=== PATIENT | male | born 2000 | race Caucasian/White ===

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

== ENCOUNTER 2022-05-07 15:53 | Emergency (ER) | payer OTHER, SELFPAY ==
--- NOTE | ~2022-05-07 | XR_ITS ---
EXAM: XR foot LT min 3V DATE: 05/07/2022 16:33 HISTORY: left 1st toe pain s/p cart ran over foot . COMPARISON: None available. FINDINGS: Normal mineralization. No fracture or dislocation. No lytic or blastic lesion. Joint space s are maintained. No erosion or periosteal change. Soft tissues within normal limits. IMPRESSION: No acute osseous finding in the left foot. Reviewed, dictated and finalized at location K.
[2022-05-07 16:09] VITALS: BP 114/58; PULSE 81; RESP 16; TEMP 36.7; O2SAT 99
--- NOTE | 2022-05-07 16:22 | ED.LOWEXIN ---
HPI - Extremity Injury (Lower) General Chief Complaint: Extremity Injury, Lower Stated Complaint: injury Time Seen by Provider: 05/07/22 16:22 Source: patient Mode of arrival: ambulatory Limitations: no limitations History of Present Illness HPI Narrative: 22-year-old male presenting for complaint of left great toe pain after injury today. States the left foot was rolled over by a rolling cart with heavy boxes on top. Denies foot pain, numbness or tingling. It is worse with walking. Has not taken anything for pain. Related Data Home Medications Medication Instructions Recorded Confirmed No Home Medications 05/07/22 05/07/22 Allergies Allergy/AdvReac Type Severity Reaction Status Date / Time No Known Allergies Allergy Mild Verified 05/07/22 16:05 Review of Systems Review of Systems: CONSTITUTIONAL: Denies body aches, fever, chills CARDIOVASCULAR: Denies chest pain, palpitations, or edema. RESPIRATORY: Denies cough or dyspnea. SKIN: Denies rash, itching, or wounds. MUSCULOSKELETAL: Reports left great toe pain NEUROLOGIC: Denies headache, numbness, tingling, or weakness. PSYCH: Denies depression or anxiety. All systems reviewed & are unremarkable except as noted in HPI and below PMFSH Comments At time of signature, I have reviewed and agree with nursing past medical, surgical, social and family history unless otherwise noted. Please see nursing chart for further information. There is no relevant family history pertinent to the presenting complaint Exam Narrative: GENERAL: Well-appearing CHEST: Speaks in full sentences. No respiratory distress. HEART: Regular rate and rhythm. Normal and equal peripheral pulses. EXTREMITIES: Left foot has normal strength and sensation, normal range of motion. Left great toe without edema or ecchymosis, mild tenderness over the nail. Approximately 3 mm superficial laceration to the lateral aspect of the great toenail. No obvious deformity; pulse palpable and equal bilaterally, skin warm, dry, pink. Capillary refill less than 3 seconds. SKIN: Warm, dry, no rash. NEURO: Alert and oriented x3. PSYCH: Normal mood and affect Course Course Emergency Course: Patient is aware of diagnosis, understands and agrees to treatment plan. Anticipatory guidance given. Patient agrees to follow-up as directed and is aware of reasons to seek care at the emergency department. Portions of this record may have been created with voice recognition software Level of Care: Express Care Visit Vital Signs Vital signs: Vital Signs Temperature 98.1 F 05/07/22 16:09 Pulse Rate 81 05/07/22 16:09 Respiratory Rate 16 05/07/22 16:09 Blood Pressure 114/58 L 05/07/22 16:09 Pulse Oximetry 99 05/07/22 16:09 Oxygen Delivery Room Air 05/07/22 16:09 Temperature 98.1 F 05/07/22 16:09 Pulse Rate 81 05/07/22 16:09 Respiratory Rate 16 05/07/22 16:09 Blood Pressure 114/58 L 05/07/22 16:09 Pulse Oximetry 99 05/07/22 16:09 Oxygen Delivery Room Air 05/07/22 16:09 Reviewed MDM - Extremity Injury (Lower) MDM Narrative Medical decision making narrative: xray left toe negative. reviewed with pt. Advised supportive treatments and f/u. Differential Diagnosis Differential diagnosis: Likely puncture wound of foot and fracture of toe Imaging Data Radiologist's impression: Ordering Physician: Dariana Eisenberg APRN Date of Service: 05/07/22 Procedure(s): XR foot LT min 3V Accession Number(s): [id number] cc: Dariana Eisenberg APRN; UNKNOWN,DOCTOR~ EXAM:? XR foot LT min 3V DATE: 05/07/2022 16:33 HISTORY: left 1st toe pain s/p cart ran over foot . COMPARISON:? None available. FINDINGS:? Normal mineralization. No fracture or dislocation. No lytic or blastic lesion. Joint spaces are maintained. No erosion or periosteal change. Soft tissues within normal limits. IMPRESSION: No acute osseous finding in the left foot. Discharge Plan Discharge Clin
== END 2022-05-07 17:10 | disposition home or self-care (01) ==
PROVIDERS: Emergency Provider Nurse Practitioner Family
DX: M79.675 Pain in left toe(s) (principal)
CPT/HCPCS: 73630; 99213; G0463

== ENCOUNTER 2022-08-25 17:44 | Emergency (ER) | payer BC, SELFPAY ==
[2022-08-25 17:56] VITALS: BP 121/61; PULSE 67; RESP 16; TEMP 36.6; O2SAT 99
--- NOTE | 2022-08-25 17:56 | ED.URI ---
HPI - URI/Sore Throat General Chief Complaint: Upper Respiratory Infection Stated Complaint: Sore Throat,Headache,Running Nose Time Seen by Provider: 08/25/22 17:57 Source: patient, RN notes reviewed and old records reviewed Mode of arrival: ambulatory Limitations: no limitations History of Present Illness HPI Narrative: 22-year-old presents to the [facility] with complaints of sore throat, headache and runny nose since Thursday. States that he took DayQuil this morning. Denies any fevers. No chest pain or shortness of breath. Related Data Allergies Allergy/AdvReac Type Severity Reaction Status Date / Time No Known Allergies Allergy Mild Verified 05/07/22 16:05 Review of Systems Review of Systems: All systems reviewed & are unremarkable except as noted in HPI and below Constitutional: Constitutional: Reports no additional constitutional complaints, Denies chills and Denies fever(s) Eyes: Eyes: Reports no additional eye complaints ENT: Reports as per HPI and Reports sore throat Cardiovascular: Cardiovascular: Reports no additional cardiovascular complaints Respiratory: Respiratory: Reports as per HPI and Reports cough Gastrointestinal: Gastrointestinal: Reports no additional gastrointestinal complaints Musculoskeletal: Musculoskeletal: Reports no additional musculoskeletal complaints Integumentary/Breasts: Skin/Breast: Reports system reviewed and no additional complaints, except as docu Neurologic: Reports system reviewed and no additional complaints, except as documented Psychiatric: Psychiatric: Reports no additional psychiatric complaints Allergic/Immunologic: Allergic/Immunologic: Reports no additional allergic/immunologic complaints PMFSH Past Medical History Medical History No significant medical problems Surgical History Surgical History (Updated 08/25/22 @ 18:22 by Kathy Weinstein APRN) Hx of tympanostomy tubes as a child Social History Social History (Updated 08/25/22 @ 18:23 by Kathy Weinstein APRN) Smoking status: Current some day smoker Gender identity (if verbalized by the patient): Male Comments At the time of my signature, I reviewed and agree with the nursing past medical, surgical, social, and family history. There is no relevant family history pertinent to the patient complaint. Exam Const: General: healthy appearing, no acute distress, alert and well nourished Nutritional Appearance: well nourished Orientation/consciousness: patient oriented x3 Limitations: no limitations HENMT: Head: normal to inspection Ears: external ears normal, EAC's normal and TM abnormal with fluid behind the TM bilateral and scarred bilateral (tubes); not erythematous Face/Nose/Sinus: Normal external nose present, Normal nares present and Normal nasal mucous membranes and turbinates present Face and sinus: normal facial exam and sinuses nontender Mouth: Yes Normal oral and palatal mucosa present, Yes lip normal and Yes tongue normal Teeth and gingiva: dentition normal Throat: posterior oropharynx normal, tonsils normal, uvula midline, normal tonsils, postnasal drainage and no uvular edema Eyes: General: appearance normal, both eyes and all related structures Conjunctivae: conjunctivae normal Pupils: Equal, round and reactive pupils present Neck: Neck: normal visual inspection, no lymphadenopathy and no meningeal signs Chest: Chest palpation & inspection: normal inspection of the chest Resp: Effort & Inspection: normal respiratory effort and no use of accessory muscles Auscultation: clear to auscultation bilaterally, no crackles, no rales, no rhonchi and no wheezes Cardio: Rate: regular rate Rhythm: regular rhythm Back/Spine/Pelvis: Cervical Spine: normal cervical lordosis Thoracic/Lumbar Spine: thoracic and lumbar spine normal to inspection Skin: General skin exam: normal color Rashes: no rashes Wounds: no wounds Neuro: General:
== END 2022-08-25 18:23 | disposition home or self-care (01) ==
PROVIDERS: Emergency Provider Nurse Practitioner; PCP Pediatrics
DX: J06.9 Acute upper respiratory infection, unspecified (principal); F17.200 Nicotine dependence, unspecified, uncomplicated
CPT/HCPCS: 87081; 87880; 99213; G0463

== ENCOUNTER 2022-10-27 09:01 | Emergency (ER) | payer BC, SELFPAY ==
--- NOTE | ~2022-10-27 | US_ITS ---
US scrotum doppler INDICATION: Left testicular pain TECHNIQUE: Testicular sonogram utilizing grayscale and color Doppler FINDINGS: The testes are normal in size and appearance. No focal lesions are seen. The right testes measures 0.3 x 3.2 x 2.5 cm centimeters, and the left testis measures 4.3 x 3.1 x 2.4 cm cm. There is normal vascular flow to both testes. There is a 4 mm right epididymal cysts. Small bilateral hydroceles. IMPRESSION: 1. Small bilateral hydroceles. Otherwise, unremarkable testicular ultrasound. Reviewed, dictated and finalized at location A. ARCH COORDINATOR
[2022-10-27 09:06] VITALS: BP 144/80; PULSE 75; RESP 18; TEMP 37.3; O2SAT 99
--- NOTE | 2022-10-27 09:27 | ED.GENADULT ---
HPI - General Adult General Chief complaint: Unspecified Stated complaint: testicular pain Time Seen by Provider: 10/27/22 09:15 History of Present Illness HPI narrative: Pt was moving legs on chair to sit sideway and pinched his left testicle. This occured two days ago. Pt has persistent pain with movement or activity in left testicle but resolves when still. Pt denies urinary symptoms or dsicharge. Mother states had UTI symptoms in past and has seen urologist as youth. Related Data Allergies Allergy/AdvReac Type Severity Reaction Status Date / Time No Known Allergies Allergy Mild Verified 10/27/22 09:12 Review of Systems Review of Systems: All systems reviewed & are unremarkable except as noted in HPI and below PMFSH Past Medical History Medical History No significant medical problems Surgical History Surgical History (Updated 08/25/22 @ 18:22 by Kathy Weinstein APRN) Hx of tympanostomy tubes as a child Social History Social History (Updated 08/25/22 @ 18:23 by Kathy Weinstein APRN) Smoking status: Current some day smoker Gender identity (if verbalized by the patient): Male Exam Const: General: cooperative, no acute distress and well developed Neck: Neck: normal visual inspection Chest: Chest palpation & inspection: normal inspection of the chest Resp: Effort & Inspection: normal respiratory effort Cardio: Rate: regular rate Rhythm: regular rhythm GI: Inspection: normal to inspection GI Palp: No abdominal tenderness Auscultation: normal bowel sounds : Male General Exam: Yes normal external exam, No edema, No erythema, No hernia, No inguinal lymphadenopathy and No tenderness Penis: Yes normal penis Meatus: meatus normal Scrotum: scrotum normal Testes: testicular lie normal, epididymides normal and epididymal tenderness on the left (minimal) Skin: General skin exam: normal color Neuro: General: patient oriented x3 Speech: normal speech Extrem: General: normal to inspection Course Vital Signs Vital signs: Vital Signs Temperature 99.1 F 10/27/22 09:06 Pulse Rate 75 10/27/22 09:06 Respiratory Rate 18 10/27/22 09:06 Blood Pressure 144/80 H 10/27/22 09:06 Pulse Oximetry 99 10/27/22 09:06 Oxygen Delivery Room Air 10/27/22 09:06 Temperature 99.1 F 10/27/22 09:06 Pulse Rate 75 10/27/22 09:06 Respiratory Rate 18 10/27/22 09:06 Blood Pressure 144/80 H 10/27/22 09:06 Pulse Oximetry 99 10/27/22 09:06 Oxygen Delivery Room Air 10/27/22 09:06 Medical Decision Making Vital Signs Vital Signs: Vital Signs Temperature 99.1 F 10/27/22 09:06 Pulse Rate 75 10/27/22 09:06 Respiratory Rate 18 10/27/22 09:06 Blood Pressure 144/80 H 10/27/22 09:06 Pulse Oximetry 99 10/27/22 09:06 Oxygen Delivery Room Air 10/27/22 09:06 Temperature 99.1 F 10/27/22 09:06 Pulse Rate 75 10/27/22 09:06 Respiratory Rate 18 10/27/22 09:06 Blood Pressure 144/80 H 10/27/22 09:06 Pulse Oximetry 99 10/27/22 09:06 Oxygen Delivery Room Air 10/27/22 09:06 Lab Data Labs: Lab Results 10/27/22 Range/Units 10:11 Urine Color Yellow (Yellow) Urine Appearance Clear (Clear) Urine pH 6.0 (5.0-9.0) Ur Specific [place] 1.010 (1.001-1.035) Urine Protein Negative (Negative) mg/dL Urine Glucose (UA) Negative (Negative) mg/dL Urine Ketones Negative (Negative) mg/dL Ur Blood (Man) Trace-intact (Negative) Urine Nitrate Negative (Negative) Urine Bilirubin Negative (Negative) Urine Urobilinogen 0.2 (<2.0) mg/dL Leukocyte Esterase Rfl Negative (Negative) JOSE ALEJANDRO/UL Urine RBC 0-2 (0-2) /hpf Urine WBC 0-3 /hpf Discharge Plan Discharge Clinical Impression: Left testicular pain Patient Disposition: Home, Self-Care Condition: Stable Instructions: Antibiotic Form, Testicle Pain (ED) Prescriptions: No Action flut
[2022-10-27 10:20] LABS: Appearance Urine Clear (Clear); Bilirubin Urine Negative (Negative); Blood Urine Trace-intact (Negative); Color Urine Yellow (Yellow); Glucose Urine UA Negative (Negative); Ketones Urine Negative (Negative); Leukocyte Esterase Ur Negative LEU/UL (Negative); Nitrate Urine Negative (Negative); Protein Urine Negative (Negative); Urobilinogen Urine 0.2 mg/dL (<2.0)
[2022-10-27 10:25] LABS: RBC Urine 0-2 /hpf (0-2); WBC Urine 0-3 /hpf
[2022-10-27 10:27] LABS: Add Urine Microscopic? YES
== END 2022-10-27 11:51 | disposition home or self-care (01) ==
PROVIDERS: Emergency Provider Emergency Medicine; PCP Pediatrics
DX: N50.812 Left testicular pain (principal); F17.200 Nicotine dependence, unspecified, uncomplicated
CPT/HCPCS: 76870; 81001; 93976; 99284

== ENCOUNTER 2023-02-13 18:27 | Emergency (ER) | payer BC, SELFPAY ==
[2023-02-13 18:36] VITALS: BP 103/60; PULSE 65; RESP 16; TEMP 36.9; O2SAT 99
--- NOTE | 2023-02-13 19:07 | ED.URI ---
HPI - URI/Sore Throat General Chief Complaint: Upper Respiratory Infection Stated Complaint: sore throat, headache, sinus pressure Time Seen by Provider: 02/13/23 19:07 Source: patient Mode of arrival: ambulatory Limitations: no limitations History of Present Illness HPI Narrative: 22-year-old male presents with complaint of sinus congestion, headaches, postnasal drainage, runny nose for the past 4 days. Is not taking any [id number] medications to treat his sinus congestion. Afebrile. Needs work note. Patient is well-appearing. All systems reviewed and negative except as noted above. Related Data Allergies Allergy/AdvReac Type Severity Reaction Status Date / Time No Known Allergies Allergy Mild Verified 02/13/23 18:32 Review of Systems Review of Systems: CONSTITUTIONAL: Denies fever, chills, or sweats. EYES: Denies visual changes, redness, or discharge. ENT: Reports rhinorrhea, congestion, sinus congestion. Denies sore throat. Denies otalgia. CARDIOVASCULAR: Denies chest pain, palpitations, or edema. RESPIRATORY: Denies cough or dyspnea. GASTROINTESTINAL: Denies abdominal pain, nausea, vomiting, or diarrhea. GENITOURINARY: Denies dysuria or hematuria. SKIN: Denies rash or itching. MUSCULOSKELETAL: Denies back pain, joint pain, or myalgia. NEUROLOGIC: Denies headache, numbness, or weakness. PSYCHIATRIC: Denies anxiety or depression. All other systems reviewed are negative, except as documented in HPI. PMFSH Past Medical History Medical History No significant medical problems Surgical History Surgical History (Updated 08/25/22 @ 18:22 by Kathy Weinstein APRN) Hx of tympanostomy tubes as a child Social History Social History (Updated 08/25/22 @ 18:23 by Kathy Weinstein APRN) Smoking status: Current some day smoker Gender identity (if verbalized by the patient): Male Comments At time of signature, agree with nursing past medical, surgical, social and family history. There is no relevant family history pertinent to the presenting complaint. Exam Narrative: GENERAL: This is a well-nourished, well-developed patient, in no apparent distress. HEAD: normocephalic, atraumatic. EYES: PERRL. Sclera clear/white. Vision is grossly intact. EARS: External ears normal, auditory canals clear and without drainage, TMs normal without perforation. Hearing grossly intact. NOSE: External nose normal with clear nasal drainage, mild congestion. No sinus tenderness on palpation. THROAT: Mucous membranes moist, Clear postnasal drainage. NECK: Neck supple, non-tender without lymphadenopathy, masses or thyromegaly. CARDIOVASCULAR: Regular rate and rhythm without murmurs, gallops, or rubs. RESPIRATORY: Clear to auscultation. Breath sounds equal bilaterally. No wheezes, rales, or rhonchi. SKIN: warm, Dry, intact with no suspicious lesions or rash, good texture and turgor. NEURO: awake, alert, and oriented to person, place and time. There were no obvious focal neurologic abnormalities. EXTREMITIES: No joint tenderness, effusion, or edema noted. Course Course Level of Care: Express Care Visit Vital Signs Vital signs: Vital Signs Temperature 36.9 C 02/13/23 18:36 Pulse Rate 65 02/13/23 18:36 Respiratory Rate 16 02/13/23 18:36 Blood Pressure 103/60 02/13/23 18:36 Pulse Oximetry 99 02/13/23 18:36 Oxygen Delivery Room Air 02/13/23 18:36 Temperature 36.9 C 02/13/23 18:36 Pulse Rate 65 02/13/23 18:36 Respiratory Rate 16 02/13/23 18:36 Blood Pressure 103/60 02/13/23 18:36 Pulse Oximetry 99 02/13/23 18:36 Oxygen Delivery Room Air 02/13/23 18:36 Reviewed MDM - URI/Sore Throat MDM Narrative Medical decision making narrative: Patient is aware of diagnosis, understands and agrees to treatment plan. Anticipatory guidance given. Patient agrees to follow-up as directed and is aware of reasons to seek care
== END 2023-02-13 19:14 | disposition home or self-care (01) ==
PROVIDERS: Emergency Provider Nurse Practitioner Family; PCP Pediatrics
DX: J01.90 Acute sinusitis, unspecified (principal); B97.89 Other viral agents as the cause of diseases classified elsewhere; F17.200 Nicotine dependence, unspecified, uncomplicated
CPT/HCPCS: 99213; G0463

== ENCOUNTER 2023-02-17 18:35 | Emergency (ER) | payer BC, SELFPAY ==
--- NOTE | ~2023-02-17 | XR_ITS ---
EXAMINATION: XR chest 2V DATE: 02/17/2023 19:10 INDICATION: Productive cough TECHNIQUE: PA and lateral views of the chest are obtained. COMPARISON: 11/29/2012 FINDINGS: The lungs are free of acute opacities. No pleural effusion or pneumothorax. The cardiomedia stinal silhouette is normal. The visualized bones and soft tissues are unremarkable. IMPRESSION: 1. No acute cardiopulmonary abnormality. Reviewed, dictated and finalized at location F.
[2023-02-17 18:55] VITALS: BP 127/70; PULSE 77; RESP 12; TEMP 36.9; O2SAT 100
--- NOTE | 2023-02-17 19:21 | ED.URI ---
HPI - URI/Sore Throat General Chief Complaint: Upper Respiratory Infection Stated Complaint: Ear/Nose/ Throat Time Seen by Provider: 02/17/23 19:00 Source: patient Mode of arrival: ambulatory Limitations: no limitations History of Present Illness HPI Narrative: Jay is a 22-year-old male patient presenting to the clinic today with complaints of productive cough with green phlegm, green nasal drainage, sinus pressure, chest pressure, and intermittent periods of shortness of breath. He denies any known fever or chills. He was seen 4 days a in the clinic and diagnosed with the URI. He was given prescription for prednisone and Flonase. States that this is not helping. He is a current smoker MD elicited complaint: cough, rhinorrhea, nasal congestion and other (Shortness of breath) Related Data Allergies Allergy/AdvReac Type Severity Reaction Status Date / Time No Known Allergies Allergy Mild Verified 02/17/23 18:55 Review of Systems Review of Systems: Pertinent positives per HPI. Patient denies any fever, chills, rash, headache, visual changes, dizziness, palpitations, nausea, vomiting, diarrhea, constipation, abdominal pain, or any urinary issues. PENDING SALE TO [facility] Past Medical History Medical History No significant medical problems Surgical History Surgical History (Updated 08/25/22 @ 18:22 by Kathy Weinstein APRN) Hx of tympanostomy tubes as a child Social History Social History (Updated 08/25/22 @ 18:23 by Kathy Weinstein APRN) Smoking status: Current some day smoker Gender identity (if verbalized by the patient): Male Comments At the time of my signature, I reviewed and agree with the nursing past medical, surgical, social, and family history. There is no relevant family history pertinent to the patient complaint. Exam Narrative: General: Well-developed, well nourished, in no apparent distress Head: Normocephalic, atraumatic Eyes: Pupils equally round and reactive to light bilaterally, EOM intact, sclera and conjunctive clear, no discharge, lids normal Ears: TMs intact and dull, ear canals clear, no drainage, grossly hearing normal. Nose: Nares patent, green nasal discharge, moderate inflammation, no sinus tenderness. Mouth: Oral pharynx without lesions or masses, good dentition, MMM. Neck: Supple, trachea midline, no enlargement of anterior or posterior cervical nodes, no thyroid masses or goiter palpable. Cardio: Regular rate and rhythm, s1 and s2 normal, no murmur appreciated. Resp: Clear to auscultation bilaterally, no rhonchi, rales, wheezing or rubs Course Course Emergency Course: Portions of this record may have been created with voice recognition software. Level of Care: Express Care Visit Vital Signs Vital signs: Vital Signs Temperature 36.9 C 02/17/23 18:55 Pulse Rate 77 02/17/23 18:55 Respiratory Rate 12 02/17/23 18:55 Blood Pressure 127/70 02/17/23 18:55 Pulse Oximetry 100 02/17/23 18:55 Oxygen Delivery Room Air 02/17/23 18:55 Temperature 36.9 C 02/17/23 18:55 Pulse Rate 77 02/17/23 18:55 Respiratory Rate 12 02/17/23 18:55 Blood Pressure 127/70 02/17/23 18:55 Pulse Oximetry 100 02/17/23 18:55 Oxygen Delivery Room Air 02/17/23 18:55 Vital signs reviewed MDM - URI/Sore Throat MDM Narrative Medical decision making narrative: At the time of visit patient is resting comfortably on exam table. COVID, influenza, and strep test were all negative in the clinic today. Chest x-ray was performed and was negative in the clinic today. I suspect patient has bronchitis. We will send a prescription for azithromycin and albuterol inhaler. Supportive measures were discussed with the patient and he voiced understanding of discharge instructions and agrees to treatment plan. Differential Diagnosis Differential diagnosis: Likely upper respiratory infection, otitis media, sinusitis, viral infection, b
== END 2023-02-17 19:30 | disposition home or self-care (01) ==
PROVIDERS: Emergency Provider Nurse Practitioner Family; PCP Pediatrics
DX: J40 Bronchitis, not specified as acute or chronic (principal); F17.200 Nicotine dependence, unspecified, uncomplicated; Z20.822 Contact with and (suspected) exposure to COVID-19
CPT/HCPCS: 71046; 87081; 87426; 87804; 87880; 99213; C9803; G0463

== ENCOUNTER 2023-11-20 16:53 | Emergency (ER) | payer BC, SELFPAY ==
[2023-11-20 17:13] VITALS: BP 119/56; PULSE 75; RESP 16; TEMP 36.3; O2SAT 99
--- NOTE | 2023-11-20 17:54 | ED.URI ---
HPI - URI/Sore Throat General Chief Complaint: Upper Respiratory Infection Stated Complaint: tightness in chest ,nasal discharge,cough Source: patient and RN notes reviewed Mode of arrival: ambulatory Limitations: no limitations History of Present Illness HPI Narrative: 23-year-old male presented for complaint of headache, sore throat, sinus pressure/congestion, cough. onset 5 days. Taking multiple mpfe-wfb-veueior medication without relief. Mother has similar symptoms. Denies sob, wheezing, n/v/d. MD elicited complaint: cough Related Data Allergies Allergy/AdvReac Type Severity Reaction Status Date / Time No Known Allergies Allergy Mild Verified 11/20/23 17:11 Review of Systems Review of Systems: per HPI [facility] Past Medical History Medical History No significant medical problems Surgical History Surgical History Hx of tympanostomy tubes as a child Social History Social History Smoking status: Current some day smoker Gender identity (if verbalized by the patient): Male Exam Narrative: GENERAL: mildly Ill-appearing, nontoxic no acute distress. EYES: PERRLA, conjunctivae clear ENT: Mucous membranes moist. TMs pearly petty with dull light reflex bilaterally; no tragal tenderness. Oropharynx not erythematous without lesions or exudate NECK: Supple. No lymphadenopathy CHEST: Clear to auscultation, breath sounds equal. No wheezing, rhonchi, rales, or stridor. No respiratory distress, speaks in full sentences. HEART: Regular rate and rhythm. No murmur heard. SKIN: Warm, dry, no rash. NEURO: Alert and oriented x3. PSYCH: Normal mood and affect Course Course Emergency Course: Patient is aware of diagnosis, understands and agrees to treatment plan. Anticipatory guidance given. Patient agrees to follow-up as directed and is aware of reasons to seek care at the emergency department. Portions of this record may have been created with voice recognition software Level of Care: Express Care Visit Vital Signs Vital signs: Vital Signs Temperature 97.4 F L 11/20/23 17:13 Pulse Rate 75 11/20/23 17:13 Respiratory Rate 16 11/20/23 17:13 Blood Pressure 119/56 L 12/29/23 17:13 Pulse Oximetry 99 11/20/23 17:13 Oxygen Delivery Room Air 11/20/23 17:13 Temperature 97.4 F L 11/20/23 17:13 Pulse Rate 75 11/20/23 17:13 Respiratory Rate 16 11/20/23 17:13 Blood Pressure 119/56 L 11/20/23 17:13 Pulse Oximetry 99 11/20/23 17:13 Oxygen Delivery Room Air 11/20/23 17:13 reviewed MDM - URI/Sore Throat MDM Narrative Medical decision making narrative: Discussed physical exam findings. He does not have pcp to f/u with. Advised supportive measures and signs/symptoms to go to the ER. Will only start abx if sx worsen in one week. Pt is appropriate for outpt treatment and f/u. Differential Diagnosis Differential diagnosis: Likely upper respiratory infection, sinusitis and viral infection Lab Data Labs: Lab Results 11/20/23 Range/Units 17:25 POC SARS CoV-2 Ag Negative (Negative) Influenza A Screen Negative Reference Range: Negative Influenza B Screen Negative Reference Range: Negative Discharge Plan Discharge Clinical Impression: Upper respiratory infection Patient Disposition: Home, Self-Care Condition: Stable Instructions: Antibiotic Form, Upper Respiratory Infection (ED) Additional Instructions: COVID and flu negative. Recommend Flonase spray and Zyrtec (or Claritin/Maile) over the counter Cough syrup may cause drowsiness; avoid driving or take it at night time. Tylenol 1000mg every 8 hours as needed for pain Symptomatic treatment includes: re
== END 2023-11-20 18:11 | disposition home or self-care (01) ==
PROVIDERS: Emergency Provider Nurse Practitioner Family; PCP Pediatrics
DX: J06.9 Acute upper respiratory infection, unspecified (principal); Z20.822 Contact with and (suspected) exposure to COVID-19; F17.200 Nicotine dependence, unspecified, uncomplicated
CPT/HCPCS: 87426; 87804; 99213; C9803; G0463

== ENCOUNTER 2025-01-22 17:00 | Emergency (ER) | payer BC, SELFPAY ==
--- NOTE | 2025-01-22 17:07 | ED.URI ---
HPI - URI/Sore Throat General Chief Complaint: Upper Respiratory Infection Stated Complaint: Cough/Eyes Irritation Time Seen by Provider: 01/22/25 17:07 Source: patient, RN notes reviewed and old records reviewed Mode of arrival: ambulatory Limitations: no limitations History of Present Illness HPI Narrative: Patient presents accompanied by his mother. He is complaining of flu-like symptoms that began last Thursday. He has been taking NyQuil for his symptoms with moderate relief. He states that body aches and headache are the worst of his symptoms. He reports chills and sweats, he is unsure fever status. He is not any obvious distress Related Data Home Medications ?Medication ?Instructions ?Recorded ?Confirmed ?Last Taken ?Type No Home Medications 01/22/25 01/22/25 Unknown History Allergies Allergy/AdvReac Type Severity Reaction Status Date / Time No Known Allergies Allergy Mild Verified 01/22/25 17:03 Review of Systems Review of Systems: All systems reviewed & are unremarkable except as noted in HPI and below Constitutional: Constitutional: Reports no additional constitutional complaints, Reports body ache(s), Reports daytime sleepiness, Reports excessive sweating, Reports headache(s) and Reports lethargy Eyes: Eyes: Reports eye pain ENT: Reports system reviewed and no additional complaints, except as documented, Reports nasal congestion, Reports nasal discharge and Reports sore throat Cardiovascular: Cardiovascular: Reports no additional cardiovascular complaints Respiratory: Respiratory: Reports no additional respiratory complaints and Reports cough Gastrointestinal: Gastrointestinal: Reports no additional gastrointestinal complaints [facility] Past Medical History Medical History No significant medical problems Surgical History Surgical History Hx of tympanostomy tubes as a child Social History Social History Smoking status: Current some day smoker Gender identity (if verbalized by the patient): Male Comments At the time of my signature, I reviewed and agree with the nursing past medical, surgical, social, and family history. There is no relevant family history pertinent to the patient complaint. Exam Const: General: cooperative, no acute distress, alert and awake Orientation/consciousness: oriented to person, oriented to place and oriented to time HENMT: Head: normal to inspection Ears: TM's normal bilaterally Mouth: Yes moist mucous membranes Resp: Effort & Inspection: normal respiratory effort and able to speak in complete sentences Auscultation: clear to auscultation bilaterally, no crackles, no rales, no rhonchi and no wheezes Cardio: Palpation: normal PMI Rate: regular rate Rhythm: regular rhythm Heart sounds: S1 normal heart sound present and S2 normal heart sound present Neuro: General: oriented to person, oriented to place and oriented to time Cranial nerves: Yes CN's II-XII intact bilaterally Psych: Appearance: grossly normal Thought process: Normal thought process present Insight: Good insight present (Psych) Judgement: Good judgement present (Psych) Course Course Level of Care: Express Care Visit Vital Signs Vital signs: Reviewed MDM - URI/Sore Throat MDM Narrative Medical decision making narrative: Reassuring physical exam. Positive influenza a. Too late for Tamiflu. Supportive care measures discussed. Discharge instructions reviewed with patient, as well as provided in writing per nursing staff. The instructions also include specific and strict return/GO TO THE ER as well as f/u information. All questions have been answered, and the patient deny any further questions with discharge and discharge plan. Some parts of this dictation were generated by voice recognition software and may contain typographical and/or grammatical inaccuracies. Differential Diagnosis Differential diagnosis: Likely upper respiratory infection, otitis media, viral infection, bronchitis and influenza Medical Records Attestation: I reviewed the patient's medical records. Lab Data Attestation: I reviewed the patient's lab results. Discharge Plan Discharge Clinical Impression: Influenza Patient Disposition: Home, Self-Care Condition: Stable Instructions: Antibiotic Form, Influenza (ED) Additional Instructions: Use [id number] medications to treat symptoms. Follow package instructions. Follow-up with primary care provider. Emergency department for new or worse symptoms Patient Language: Uzbek Prescriptions: No Action No Home Medications Follow-up/Referrals: Norman Garza MD [Primary Care Provider] - 2 Weeks Stand Alone Forms: Work/School Release IP Time of Disposition: 17:25
[2025-01-22 17:14] VITALS: BP 100/58; PULSE 87; RESP 14; TEMP 37.4; O2SAT 100
[2025-01-22 17:29] LABS: EDCOVIDSCREEN Negative (Negative); EDINFLUASCREEN Positive (Negative); EDINFLUBSCREEN Negative (Negative)
== END 2025-01-22 17:30 | disposition home or self-care (01) ==
PROVIDERS: Emergency Provider Nurse Practitioner Family; PCP Pediatrics
DX: J10.1 Influenza due to other identified influenza virus with other respiratory manifestations (principal); Z20.822 Contact with and (suspected) exposure to COVID-19; F17.200 Nicotine dependence, unspecified, uncomplicated
CPT/HCPCS: 87426; 87804; 99212; G0463